=== PATIENT | female | born 1965 | race Caucasian/White ===

== ENCOUNTER 2019-06-25 07:56 | Emergency (ER) | payer OTHER ==
[2019-06-25 08:50] VITALS: BP 130/64
--- NOTE | 2019-06-25 09:59 | ED ---
Skin Complaint - HPI Summary HPI Summary: This patient is a 54-year-old female presenting to the ED with request for suture and bandage removal. Rotator cuff surgery on 06/16/19 in [facility]. She is currently here for work and states she is unable to see her physician for suture removal. She was told to come to an urgent care for this. She comes today for request for suture removal and denies any complaints at this time. She states the area to the shoulder is continuing to be sore, but continues to take her pain medications as prescribed. She is also having a bandage to the axillary area which she has not removed since the surgery. Denies any fevers, sweats, chills. Denies any drainage from the area. - History of Current Complaint Chief Complaint: EDLacSutureRecheck Time Seen by Provider: 06/25/19 08:15 Stated Complaint: STICH REMOVAL PER PT Hx Obtained From: Patient Timing: Constant Pain Intensity: 0 Pain Scale Used: 0-10 Numeric Skin Location: Discrete - right shoulder suture and bandage removal Aggravating Symptom(s): Nothing Alleviating Symptom(s): Nothing Associated Signs & Symptoms: Negative - Allergy/Home Medications Allergies/Adverse Reactions: Allergies Allergy/AdvReac Type Severity Reaction Status Date / Time lactose Allergy GI Upset Verified 06/25/19 08:02 Home Medications: Home Medications Acetaminophen [Tylenol Extra Strength] 500 mg PO Q4H PRN 06/25/19 [History Confirmed 06/25/19] Levothyroxine TAB* [Synthroid 125 MCG TAB*] 1 tab PO QAM 06/25/19 [History Confirmed 06/25/19] Naproxen 500 mg PO BID PRN 06/25/19 [History Confirmed 06/25/19] Omeprazole (Nf) [Prilosec (NF)] 40 mg PO DAILY 06/25/19 [History Confirmed 06/25] Ondansetron TAB* [Zofran 4 MG Tab*] 4 mg PO Q6H PRN 06/25/19 [History Confirmed 06/25/19] Oxycodone HCl 5 mg PO Q4H PRN 06/25/19 [History Confirmed 06/25/19] traMADol TAB* [Ultram*] 50 mg PO Q4H PRN 06/25/19 [History Confirmed 06/25/19] PMH/Surg Hx/FS Hx/Imm Hx Previously Healthy: Yes - Immunization History Hx Pertussis Vaccination: No Immunizations Up to Date: Yes Infectious Disease History: No Infectious Disease History: Denies: Traveled Outside the [place] in Last 30 Days - Social History Occupation: Employed Full-time Lives: With Family Alcohol Use: None Hx Substance Use: No Substance Use Type: Reports: None Hx Tobacco Use: No Smoking Status (MU): Never Smoked Tobacco Review of Systems Constitutional: Negative Negative: Fever, Chills, Fatigue, Skin Diaphoresis Negative: Palpitations, Chest Pain Negative: Shortness Of Breath, Cough Genitourinary: Negative Positive: no symptoms reported, see HPI Positive: Arthralgia - right shoulder pain. Negative: Myalgia Positive: Bruising - to the r shoulder, Other - 4 sutures placed and incision is CDI All Other Systems Reviewed And Are Negative: Yes Physical Exam Triage Information Reviewed: Yes Vital Signs On Initial Exam: Initial Vitals Temp Pulse Resp BP Pulse Ox 98.2 F 66 16 137/73 95 06/25/19 07:59 06/25/19 07:59 06/25/19 07:59 06/25/19 07:59 06/25/19 07:59 Vital Signs Reviewed: Yes Appearance: Positive: Well-Appearing, Well-Nourished Skin: Positive: Skin Color Reflects Adequate Perfusion Head/Face: Positive: Normal Head/Face Inspection Eyes: Positive: EOMI, MARIUSZ, Conjunctiva Clear Neck: Positive: Supple, No Lymphadenopathy Respiratory/Lung Sounds: Positive: Clear to Auscultation, Breath Sounds Present Cardiovascular: Positive: Pulses are Symmetrical in both Upper and Lower Extremities Musculoskeletal: Positive: Pain @ - right shoulder pain - ecchymotic. no range of motion Neurological: Positive: Sensory/Motor Intact, Alert, Oriented to Person Place, Time, Speech Normal Psychiatric: Positive: Affect/Mood Appropriate Diagnostics - Vital Signs Vital Signs Temp Pulse Resp BP Pulse Ox 06/25/19 08:50 98.2 F 62 16 130/64 97 06/25/19 07:59 98.2 F 66 16 137/73 95 - Laboratory Lab Statement: Any lab studies that have been ordered have been reviewed, and results considered in the medical decision making process. Course/Dx - Course Course Of Treatment: During this course of treatment, the patient's evaluated for suture removal and drainage removal. On the right shoulder, 4 sutures removed at the rotator cuff site. Large bandage removed from the axillary area which reveals a clean dry and intact healing incision. Per request from patient , provider called the, orthopedic PA to Dr. Whipple. Orthopedic PA was able to call back and spoke with myself. I disclosed to the PA the incision was clean dry and intact and patient will follow-up as scheduled. No other concerns at this time. - Differential Diagnoses - Skin Complaint Differential Diagnoses: Other - Clean dry and intact wound, healing wound, ecchymosis, rotator cuff injury - Diagnoses Provider Diagnoses: Visit for suture removal Discharge ED - Sign-Out/Discharge Documenting (check all that apply): Patient Departure Patient Received Moderate/Deep Sedation with Procedure: No - Discharge Plan Condition: Stable Disposition: HOME Patient Education Materials: Stitches Removal (ED) Referrals: No Primary Care Phys,NOPCP [Primary Care Provider] - Additional Instructions: I have called Korin and left message this morning on her cell phone If you have anymore complications, please call Korin or Dr. Whipple Your incisions are clean, dry and appear well without signs of infections May gently cleanse the area as needed - Billing Disposition and Condition Condition: STABLE Disposition: Home - Attestation Statements Provider Attestation: I was available for consultation for this patient. I did not evaluate the patient or participate in any medical decision making or disposition decisions unless I am specifically named in the chart as having consulted on the patient. If I have consulted on the patient, please see my own ED note on the patient encounter. Dorys Perez MD
== END 2019-06-25 08:45 | disposition home or self-care (01) ==
LOC: ED 07:56
DX: Z48.02 Encounter for removal of sutures (principal); Z98.890 Other specified postprocedural states; Z79.899 Other long term (current) drug therapy
CPT/HCPCS: 99281